=== PATIENT | male | born 1960 | race Caucasian/White ===

== ENCOUNTER 2016-08-04 13:42 | Emergency (ER) | payer BC ==
[2016-08-04 13:54] VITALS: BP 112/65
[2016-08-04] MEDS ORDERED: HYDROcodone/ACETAMIN 5-325 MG* 1 TAB PO ONE (14:29)
[2016-08-04] MEDS ORDERED: HYDROcodone/ACETAMIN 5-325 MG* 1 TAB ONE (14:31)
--- NOTE | 2016-08-04 14:49 | ED ---
Lower Extremity - History of Current Complaint Chief Complaint: EDExtremityLower Stated Complaint: FALL/RT LEG PAIN Time Seen by Provider: 08/04/16 14:28 Hx Obtained From: Patient - did not hit head, denies back or neck pain Mechanism Of Injury: Fall From Height Of: - 1-2 feet off botom of ladder Onset of Pain: Immediate Onset/Duration: Hours - 1 1/2h Severity Initially: Moderate Severity Currently: Moderate Pain Intensity: 5 Timing: Intermittent - R foot pain if bears weight or moves foot wrong Location: Is Discrete @ - outside of R foot and R hurley Character Of Pain: Sharp - foot pain, Throbbing - foot and hurley Associated Signs And Symptoms: Positive: Swelling, Bruising Aggravating Factor(s): Standing, Ambulation Alleviating Factor(s): Rest, Elevation, Ice Able to Bear Weight: Yes - with pain R foot - Allergies/Home Medications Allergies/Adverse Reactions: Allergies Allergy/AdvReac Type Severity Reaction Status Date / Time Amoxicillin Allergy Severe Rash Verified 08/04/16 13:54 PMH/Surg Hx/FS Hx/Imm Hx Previously Healthy: Yes Endocrine/Hematology History: Denies: Other Endocrine/Hematological Disorders Cardiovascular History: Denies: Other Cardiovascular Problems/Disorders Respiratory History: Denies: Other Respiratory Problems/Disorders Musculoskeletal History: Denies: Other Musculoskeletal History Neurological History: Denies: Other Neuro Impairments/Disorders Psychiatric History: Denies: Other Psychiatric Issues/Disorders Infectious Disease History: No Infectious Disease History: Denies: Traveled Outside the [place] in Last 30 Days - Family History Known Family History: Positive: None - Social History Occupation: Employed Full-time Lives: With Family Alcohol Use: Occasionally Hx Substance Use: No Smoking Status (MU): Never Smoked Tobacco Review of Systems Constitutional: Negative Cardiovascular: Negative Negative: Chest Pain Respiratory: Negative Negative: Shortness Of Breath Gastrointestinal: Negative Positive: Other - see note Positive: Bruising - RLE Neurological: Negative Negative: Headache, Weakness, Numbness Psychological: Normal All Other Systems Reviewed And Are Negative: Yes Physical Exam Triage Information Reviewed: Yes Vital Signs On Initial Exam: Initial Vitals Temp Pulse Resp BP Pulse Ox 98.0 F 62 17 112/65 97 08/04/16 13:45 08/04/16 13:45 08/04/16 13:45 08/04/16 13:45 08/04/16 13:45 Vital Signs Reviewed: Yes Appearance: Positive: Well-Appearing, No Pain Distress, Well-Nourished Skin: Positive: Warm, Skin Color Reflects Adequate Perfusion, Dry Head/Face: Positive: Normal Head/Face Inspection Neck: Positive: Supple, Nontender Respiratory/Lung Sounds: Positive: Clear to Auscultation Cardiovascular: Positive: Normal Abdomen Description: Positive: Nontender Musculoskeletal: Positive: Strength/ROM Intact - but pain with R foot movement also contussion lower R hurley, Pain @ - R foot/ hurley Neurological: Positive: Normal, Sensory/Motor Intact, Alert, Oriented to Person Place, Time Psychiatric: Positive: Normal Procedures - Splinting Hand-Made Type: orthoglass Splint: R short leg posterior Pre-Proc Neuro Vasc Exam: normal Post-Proc Neuro Vasc Exam: normal Diagnostics - Vital Signs Vital Signs Temp Pulse Resp BP Pulse Ox 08/04/16 13:45 98.0 F 62 17 112/65 97 - Laboratory Lab Statement: Any lab studies that have been ordered have been reviewed, and results considered in the medical decision making process. Lower Extremity Course/Dx - Diagnoses Differential Diagnosis/HQI/PQRI: Positive: Contusion, Dislocation, Fracture ( Closed), Strain Provider Diagnoses: Fracture, foot, Contusion Discharge - Discharge Plan Condition: Stable Disposition: HOME Patient Education Materials: Foot Fracture in Adults (ED) Referrals: Pooja Pal MD [Medical Doctor] - Additional Instructions: Ice and elevate foot. Do not put weight on your R foot-use the crutches Keep splint dry. Use hydrocodone as prescribed for severe pain ok to use over the counter ibuprofen as directed return here if symptoms worsen at any time
--- NOTE | 2016-08-04 15:18 | RAD ---
INDICATION: Right foot pain COMPARISON: None TECHNIQUE: AP, lateral, and oblique views were obtained. FINDINGS: There is an oblique mid diaphyseal fracture of the fifth metatarsal with mild distraction combination. No other fractures are evident. There is soft tissue swelling about the fracture site. IMPRESSION: FIFTH METATARSAL FRACTURE.
== END 2016-08-04 15:30 | disposition home or self-care (01) ==
LOC: ED 13:42
DX: S92.351A Displaced fracture of fifth metatarsal bone, right foot, initial encounter for closed fracture (principal); S80.11XA Contusion of right lower leg, initial encounter; W19.XXXA Unspecified fall, initial encounter; Y93.9 Activity, unspecified; Y92.9 Unspecified place or not applicable; Y99.9 Unspecified external cause status
CPT/HCPCS: 99282